=== PATIENT | female | born 1990 | race Caucasian/White ===

== ENCOUNTER 2019-09-08 06:09 | Inpatient (IN) | payer BC ==
--- NOTE | 2019-09-07 20:25 | P.HPOB ---
History of Present Illness H&P Date: 09/07/19 Chief Complaint: Post-dates This is a 29 y.o. female, 1, para 0, with an estimated date of confinement of 08/29/2019, estimated gestational age of 41-3/7 weeks, who presents for induction of labor due to postdates . course has been uncomplicated. She has had some swelling in her feet. OB Hx: . Business Operations Director Hx: No hx of STDs Social Hx: . Works part-time at [email or web address] labs: Hepatitis B surface antigen-neg RPR-NR Daquzrzk-fkh-impncy Blood type-O+ Antibody screen-jazmyn Hemoglobin-11.1 Random glucose-81 1 hr. GTT-89 GBS-positive Review of Systems Constitutional: Denies chills, Denies fever Eyes: denies blurred vision, denies pain Ears, nose, mouth and throat: Denies headache, Denies sore throat Cardiovascular: Denies chest pain, Denies shortness of breath Respiratory: Denies cough Gastrointestinal: Reports abdominal pain (irreg. ctxs) Genitourinary: Reports pelvic pain, Reports Musculoskeletal: Reports low back pain Integumentary: Denies pruritus, Denies rash Neurological: Denies numbness, Denies weakness Psychiatric: Denies anxiety, Denies depression Past Medical History Past Medical History: No Reported History Past Surgical History: Adenoidectomy Additional Past Surgical History / Comment(s): [place] teeth Past Anesthesia/Blood Transfusion Reactions: No Reported Reaction Past Psychological History: No Psychological Hx Reported Smoking Status: Former smoker Past Alcohol Use History: None Reported Past Drug Use History: None Reported - Past Family History Mother Family Medical History: Hypertension Medications and Allergies Home Medications Medication Instructions Recorded Confirmed Type Pnv,Calcium 72/Iron/Folic Acid 1 each PO 09/07/19 History [ Plus Tablet] Allergies Allergy/AdvReac Type Severity Reaction Status Date / Time No Known Allergies Allergy Verified 09/07/19 20:22 Exam Osteopathic Statement: *. No significant issues noted on an osteopathic structural exam other than those noted in the History and Physical/Consult. HEENT: within normal limits Heart: regular rate and rhythm Lungs: clear to auscultation bilaterally Abdomen: Cervix: 1.5 cm/60%/-3 heart tones: 140's Extremities: neg. Rey's Assessment and Plan (1) 41 weeks gestation of Status: Acute Code(s): Z3A.41 - 41 WEEKS GESTATION OF SNOMED Code(s): 43864916 Plan: Proceed with oxytocin induction of labor. Expectant management. Antibiotic prophylaxis for group B streptococcus. Epidural anesthesia if desired.
[2019-09-08] MEDS ORDERED: OXYTOCIN 10 UNIT/ML 1 ML VIAL IM PRN (06:21)
[2019-09-08] MEDS ORDERED: LIDOCAINE 0.5% (PF) 5 MG/ML (50 ML SDV) SQ PRN (06:21)
[2019-09-08] MEDS ORDERED: TERBUTALINE 1 MG/ML VIAL SQ PRN (06:21)
[2019-09-08] MEDS ORDERED: CARBOPROST TROMETHAMINE 250 MCG/ML 1 ML AMP IM PRN (06:21)
[2019-09-08] MEDS ORDERED: OXYTOCIN 30 UNITS/500 ML NS 30 UNIT in SALINE 1 500ML.BAG IV SCH (06:21)
[2019-09-08] MEDS ORDERED: METHYLERGONOVINE 0.2 MG/ML 1 ML AMP IM PRN (06:21)
[2019-09-08] MEDS ORDERED: AMPICILLIN 2,000 MG in SODIUM CHLORIDE 0.9% 100 ML IVPB STA (06:21)
[2019-09-08 06:46] LABS: Basophils % (A) 0 %; Eosinophils % (A) 1 %; HCT 29.9 % (34.0-46.0); HGB 9.7 gm/dL (11.4-16.0); Hypochromasia Slight; Lymphocytes # (A) 0.1 k/uL (1.0-4.8); Lymphocytes % (A) 2 %; MCH 28.9 pg (25.0-35.0); MCHC 32.5 g/dL (31.0-37.0); MCV 88.9 fL (80.0-100.0); Mean Platelet Volume 11.6; Monocytes # (A) 0.4 k/uL (0-1.0); Monocytes % (A) 5 %; Neutrophils # (A) 6.6 k/uL (1.3-7.7); Neutrophils % (A) 89 %; Platelet Count 144 k/uL (150-450); RBC 3.36 m/uL (3.80-5.40); RDW 15.9 % (11.5-15.5); WBC 7.4 k/uL (3.8-10.6)
[2019-09-08 07:13] LABS: Poikilocytosis (M) Present
[2019-09-08] MEDS: LACTATED RINGERS 1,000 ML IV SCH ×3 (07:15→15:58)
[2019-09-08] MEDS: AMPICILLIN 1,000 MG in SODIUM CHLORIDE 0.9% 50 ML IVPB SCH ×3 (11:54→19:28)
[2019-09-08] MEDS ORDERED: BUTORPHANOL 1 MG/ML 1 ML VIAL IV PRN (12:27)
[2019-09-08] MEDS ORDERED: CITRIC ACID-SODIUM CITRATE 15 ML CUP PO ONE (20:48)
[2019-09-08] MEDS ORDERED: CHLOROPROCAINE 3% 30 MG/ML 20 ML VIAL ONE (21:05)
[2019-09-08] MEDS ORDERED: ePHEDrine SULFATE/0.9% NACL/PF 50 MG/5 ML SYRINGE IV ONE (21:05)
[2019-09-08] MEDS ORDERED: KETOROLAC 30 MG/ML 1 ML VIAL ONE (21:05)
[2019-09-08] MEDS ORDERED: OXYTOCIN 10 UNIT/ML 1 ML VIAL ONE (21:05)
[2019-09-08] MEDS ORDERED: ONDANSETRON 4 MG/2 ML VIAL ONE (21:05)
--- NOTE | 2019-09-08 21:56 | P.OP ---
Date of Procedure: 09/08/19 Preoperative Diagnosis: 1. Intrauterine at 41-3/7 weeks. 2. Failure to progress. Postoperative Diagnosis: Same Procedure(s) Performed: Primary low transverse section Anesthesia: epidural Surgeon: Frances Rios Ball Truing Machine Operator #1: Eva Gallegos Estimated Blood Loss (ml): 500 Pathology: none sent Condition: stable Disposition: floor Indications for Procedure: This is a 29-year-old female 1 para 0 at 41-3/7 weeks who presents for induction of labor secondary to postdates. She underwent oxytocin induction of labor and artificial rupture of membranes with clear fluid noted. She reached a maximum of [address] that way for over 3 hours with no change despite adequate contractions. In addition she was noted to have some cervical swelling and some caput noted. I have discussed the risks, benefits, and alternative therapies for the above- mentioned procedure and for both sedation/anesthesia as well as necessary blood products administration, if indicated, as they pertain to this patient. The patient has indicated her understanding and acceptance of the risks and procedures discussed. Operative Findings: A viable male is noted in the right occiput transverse lie with a nuchal cord 2. scores are 9 at 1 minute and 9 at 5 minutes and weight is 8 lbs. 12 oz. Normal uterus tubes and ovaries are noted. Description of Procedure: The patient is taken to the operating room where she is placed in the dorsal supine position with leftward tilt after epidural anesthesia is bolused. She is prepped and draped in the normal sterile fashion. Skin was tested and found to be adequately anesthetized. A Pfannenstiel skin incision was made with a scalpel. A second knife was used to carry the incision down to the underlying layer of fascia. The fascia was nicked in the midline with a scalpel and then extended laterally bilaterally with March scissors. The anterior lip of the fascia was grasped with 2 Yobany clamps and then dissected off the underlying rectus muscle in the midline with March scissors. The inferior aspect of the fascial incision was grasped with 2 Yobany clamps and dissected off the underlying rectus muscle and the midline with March scissors. Next the peritoneum layer was tented up with 2 hemostats and then entered sharply with the scalpel. The incision is extended superiorly and inferiorly with Metzenbaum scissors. Next a DeLee retractor is placed. The vesicouterine peritoneum is entered sharply with Metzenbaum scissors and extended laterally bilaterally with Metzenbaum scissors and then the bladder flap is pushed inferiorly. The lower uterine segment is incised in transverse fashion with the scalpel and then bluntly entered with a hemostat. Clear fluid is noted. The incision was then extended laterally bilaterally with 2 fingers. Next the 's head is delivered through the incision. It is noted to be in the right occiput transverse lie. Nose and mouth are bulb suctioned. Nuchal cord 2 was reduced around the 's head. The remainder of the is easily delivered and placed on mother's abdomen. Cord is clamped and cut. is taken to warmer by nursing staff. Uterine fundus is gently massaged and placenta is delivered manually. Uterus is exteriorized and cleared of all clots and debris. Uterine incision is closed with 0 Vicryl suture in a running locked fashion. A second layer of 0 Vicryl suture is used in a running fashion for hemostasis. Once adequate hemostasis as assured, the vesicouterine peritoneum is reapproximated with 2-0 Vicryl suture in a running fashion. Posterior cul-de-sac is suctioned of all clots and debris. Uterus is returned to the abdomen. Incision is noted to be hemostatic. Peritoneal layer is closed with 0 Vicryl suture in a running fashion. Muscle layer is reapproximated with 0 Vicryl suture in interrupted fashion. Fascia layer is then closed with 0 PDS suture with 2 sutures meeting in the midline and the knots buried in either side and in the midline. The subcutaneous tissue was then closed with 2-0 Vicryl suture. Skin layer was then closed with juan david. All sponge and needle counts are correct. The patient is taken to recovery room in stable condition.
[2019-09-08] MEDS ORDERED: diphenhydrAMINE 25 MG CAP PO PRN (22:01)
[2019-09-08] MEDS ORDERED: BENZOCAINE/MENTHOL SPRAY 1 GM/SPRAY AEROSOL TOPICAL PRN (22:01)
[2019-09-08] MEDS ORDERED: METOCLOPRAMIDE 5 MG/ML 2 ML VIAL IVP PRN (22:01)
[2019-09-08] MEDS ORDERED: MEASLES-MUMPS-RUBELLA VACC/PF 12,500 UNIT/0.5 ML VIAL SQ ONE (22:01)
[2019-09-08] MEDS ORDERED: ACETAMINOPHEN TAB 325 MG TAB PO PRN (22:01)
[2019-09-08] MEDS ORDERED: SIMETHICONE 80 MG CHEWABLE PO PRN (22:01)
[2019-09-08] MEDS ORDERED: NALOXONE 0.4 MG/ML 1 ML VIAL IV PRN (22:01)
[2019-09-08] MEDS ORDERED: OXYTOCIN 20 UNITS/1000 ML NS 1,000 ML IV SCH (22:01)
[2019-09-08] MEDS ORDERED: LANOLIN CREAM 5 GM TUBE TOPICAL PRN (22:01)
[2019-09-08] MEDS ORDERED: ZOLPIDEM 5 MG TAB PO PRN (22:01)
[2019-09-08] MEDS ORDERED: diphenhydrAMINE 50 MG CAP PO PRN (22:01)
[2019-09-08] MEDS ORDERED: diphenhydrAMINE 50 MG/ML 1 ML VIAL IVP PRN ×2 (22:01)
[2019-09-08] MEDS ORDERED: KETOROLAC 30 MG/ML 1 ML VIAL IVP PRN (22:01)
[2019-09-08] MEDS ORDERED: HYDROcodone/APAP 5-325MG 1 EACH TAB PO PRN (22:01)
[2019-09-08] MEDS ORDERED: ONDANSETRON 4 MG/2 ML VIAL IVP PRN (22:01)
[2019-09-09] MEDS: SENNOSIDES-DOCUSATE SODIUM 1 EACH TAB PO SCH ×3 (02:42→20:57)
[2019-09-09] MEDS: LACTATED RINGERS 1,000 ML IV SCH ×3 (02:42→09:18)
[2019-09-09 06:34] LABS: Anisocytosis Slight; Basophils % (A) 0 %; Eosinophils % (A) 0 %; HCT 25.9 % (34.0-46.0); HGB 8.3 gm/dL (11.4-16.0); Hypochromasia Slight; Lymphocytes # (A) 0.7 k/uL (1.0-4.8); Lymphocytes % (A) 8 %; MCH 28.4 pg (25.0-35.0); MCHC 31.9 g/dL (31.0-37.0); Mean Platelet Volume 11.7; Monocytes # (A) 0.4 k/uL (0-1.0); Monocytes % (A) 4 %; Neutrophils # (A) 8.4 k/uL (1.3-7.7); Neutrophils % (A) 86 %; Platelet Count 112 k/uL (150-450); RBC 2.91 m/uL (3.80-5.40); WBC 9.7 k/uL (3.8-10.6)
--- NOTE | 2019-09-09 08:45 | P.PNOBGPC ---
Subjective - Subjective Principal diagnosis: Status post primary section postoperative day #1 Interval history: Patient is doing well. She is tolerating her pain okay. She has not passed flatus or bowel movement yet. Her catheter was just removed this morning. Lochia is minimal. She is bottle feeding. Patient reports: Reports appetite normal, Reports pain well controlled, Reports ambulating normally [place]: doing well, bottle feeding Objective - Vital Signs Latest vital signs: Vital Signs Temp Pulse Resp BP Pulse Ox 09/09/19 07:41 98.4 F 79 16 119/69 09/09/19 04:00 96.6 F L 78 16 112/68 100 09/08/19 23:54 97.2 F L 80 16 125/70 100 09/08/19 23:39 56 L 16 125/72 100 09/08/19 23:09 57 L 16 131/72 100 09/08/19 22:54 62 16 129/68 100 09/08/19 22:39 82 16 144/65 100 09/08/19 22:24 86 16 168/68 97 09/08/19 22:09 98 F 68 16 127/85 91 L Intake and Output 09/08/19 09/09/19 09/09/19 22:59 06:59 14:59 Output Total 800 850 Balance -800 -850 Output: Urine 800 850 Uretheral (Alex) 400 Other: Voiding Method Indwelling Catheter Indwelling Catheter - Exam Extremities: Present: normal. Absent: tenderness, edema Abdomen: Present: normal appearance, soft. Absent: distention, tenderness Incision: Present: normal, dry. Absent: erythematous, intact Uterus: Present: normal, firm. Absent: tenderness - Labs Labs: Abnormal Lab Results - Last 24 Hours (Table) 09/09/19 Range/Units 06:20 RBC 2.91 L (3.80-5.40) m/uL Hgb 8.3 L (11.4-16.0) gm/dL Hct 25.9 L (34.0-46.0) % RDW 16.0 H (11.5-15.5) % Plt Count 112 L (150-450) k/uL Neutrophils # 8.4 H (1.3-7.7) k/uL Lymphocytes # 0.7 L (1.0-4.8) k/uL Assessment and Plan Assessment: Status post primary section postoperative day #1 (1) 41 weeks gestation of Current Visit: No Status: Acute Code(s): Z3A.41 - 41 WEEKS GESTATION OF SNOMED Code(s): 52112955 Plan: Continue with postoperative care today. Will switch to oral pain medications later today. Will advance diet as tolerated after flatus. Patient will be seen by Dr. Guadarrama this weekend in my absence. She will follow up with me next week for a postoperative check in the office.
[2019-09-09] MEDS: HYDROcodone/APAP 7.5-325MG 1 EACH TAB PO PRN ×2 (14:20→20:56)
[2019-09-09] MEDS: IBUPROFEN 600 MG TAB PO PRN ×2 (16:32→23:32)
[2019-09-09 22:29] VITALS: RESP 16
[2019-09-10 03:13] VITALS: TEMP 98.4
[2019-09-10] MEDS: HYDROcodone/APAP 7.5-325MG 1 EACH TAB PO PRN ×2 (04:04→10:20)
[2019-09-10] MEDS: IBUPROFEN 600 MG TAB PO PRN ×2 (06:15→13:14)
[2019-09-10] MEDS: SENNOSIDES-DOCUSATE SODIUM 1 EACH TAB PO SCH (07:48)
[2019-09-10 07:56] VITALS: BP 120/73; PULSE 75
--- NOTE | 2019-09-10 11:52 | P.DS ---
Providers Date of admission: 09/08/19 06:09 Expected date of discharge: 09/10/19 Attending physician: Frances Rios Primary care physician: Stated None Hospital Course: Patient is doing very well postop day 2. She is involuting, voiding and tolerating her diet. She is passing flatus and voices no complaints other than incisional tenderness. We'll plan discharged to home today. Prescriptions for Motrin and [place] were provided. All questions were answered for her prior to her discharge and discharge instruction were thoroughly reviewed. On physical exam vital signs are stable and afebrile. Heart regular, lungs clear, extremities without pain. Abdomen is soft positive bowel sounds are noted in her incision is otherwise clean dry and intact. Lochia is reported light. Assessment postop day 2. Plan discharged home follow up with Dr. Ha on Thursday or Thursday for staple removal. Patient Condition at Discharge: Good Plan - Discharge Summary New Discharge Prescriptions: New Ibuprofen [Motrin] 600 mg PO Q6HR PRN #60 tab PRN Reason: Mild Pain Or Fever >= 100.5 HYDROcodone/APAP 5-325MG [[place] 5-325] 1 each PO Q4HR PRN #30 tab PRN Reason: Moderate Pain Continue Pnv,Calcium 72/Iron/Folic Acid [ Plus Tablet] 1 each PO DAILY Discharge Medication List Pnv,Calcium 72/Iron/Folic Acid [ Plus Tablet] 1 each PO DAILY 09/07/19 [History] HYDROcodone/APAP 5-325MG [[place] 5-325] 1 each PO Q4HR PRN #30 tab 09/09/19 [Rx] Ibuprofen [Motrin] 600 mg PO Q6HR PRN #60 tab 09/09/19 [Rx] Follow up Appointment(s)/Referral(s): Frances Rios DO [Doctor of Osteopathic Medicine] - 1 Week Activity/Diet/Wound Care/Special Instructions: Instructions 1. Do not begin any exercise program for 3 weeks. 2. Do not resume sexual relations for 3 weeks or longer if uncomfortable. 3. You may take tub baths or showers at any time. 4. You may use tampons if desired after 3 weeks. 5. Keep the area of episiotomy (stitches) clean and dry. 6. If you are not nursing, wear a good fitting, supportive bra during the day and limit fluid intake for at least 1 week to prevent breast engorgement. 7. Call the office, [phone], within the next week to make appointment for your 6 week checkup if it has not already been made. 8. Report any of the following occurrences to the doctor promptly: a. Heavy, excessive bleeding b. Chills, fever c. Burning or frequency of urination d. Pain or redness and breasts if nursing e. Increasing pain or swelling in episiotomy (stitches). In addition to the above instructions, the following additional should be followed: 1. No heavy lifting or straining (exercising) until after 6 week checkup. 2. Keep abdominal incision clean and dry: You may wear a dressing if more comfortable. 3. Make office appointment for 10 days after going home or as instructed by her doctor. Discharge Disposition: HOME SELF-CARE
== END 2019-09-10 13:30 | disposition home or self-care (01) | DRG 788 ==
LOC: 4FBP 06:09
PROVIDERS: ADMIT Obstetrics & Gynecology; ATTEND Obstetrics & Gynecology
PROC: 10D00Z1 Extraction of Products of Conception, Low, Open Approach (ICD-10-PCS; principal; 2019-09-08 21:05)
DX: O48.0 Post-term pregnancy (principal); O32.2XX0 Maternal care for transverse and oblique lie, not applicable or unspecified; O69.81X0 Labor and delivery complicated by cord around neck, without compression, not applicable or unspecified; Z37.0 Single live birth; Z3A.41 41 weeks gestation of pregnancy; Z90.89 Acquired absence of other organs; Z87.891 Personal history of nicotine dependence; Z82.49 Family history of ischemic heart disease and other diseases of the circulatory system
CPT/HCPCS: 85025; 86850; 86900; 86901; 90707

== ENCOUNTER 2021-09-02 04:47 | Emergency (ER) | payer BC, OTHER ==
[2021-09-02 04:53] VITALS: BP 141/94; PULSE 103; RESP 16; TEMP 98.8
[2021-09-02] MEDS ORDERED: LORazepam 1 MG TAB PO STA (05:45)
--- NOTE | 2021-09-02 05:55 | ED ---
Arrhythmia/Palpitations HPI - General Chief Complaint: Arrhythmia/Palpitations Stated Complaint: irregular heart beat Time Seen by Provider: 09/02/21 05:54 Source: patient, RN notes reviewed, old records reviewed Mode of arrival: ambulatory Limitations: no limitations - History of Present Illness Initial Comments: This is a 31-year-old female to the emergency department for evaluation. Patient Dese for evaluation regards to palpitations elevated heart rate some tachycardia. Mild nausea no vomiting. Symptoms woke her significantly. No history of same. No medical history takes no medications denies drugs or alcohol does admit to some mild anxiety MD Complaint: "heart racing", palpitations, irregular heart beat -: hour(s) Arrhythmia History: atrial fibrillation Associated Symptoms: anxiety Treatments Prior to Arrival: other (0) - Related Data Home Medications Medication Instructions Recorded Confirmed Vit No.180/Iron/Folic 1 each PO DAILY 09/07/19 09/08/19 [ Plus Vitamin-Mineral] Previous Rx's Medication Instructions Recorded HYDROcodone/APAP 5-325MG [[place] 1 each PO Q4HR PRN #30 tab 09/09/19 5-325] Ibuprofen [Motrin] 600 mg PO Q6HR PRN #60 tab 09/09/19 Allergies Allergy/AdvReac Type Severity Reaction Status Date / Time No Known Allergies Allergy Verified 09/02/21 04:50 Review of Systems ROS Statement: Those systems with pertinent positive or pertinent negative responses have been documented in the HPI. ROS Other: All systems not noted in ROS Statement are negative. Past Medical History Past Medical History: No Reported History History of Any Multi-Drug Resistant Organisms: None Reported Past Surgical History: Adenoidectomy Additional Past Surgical History / Comment(s): [place] teeth Past Anesthesia/Blood Transfusion Reactions: No Reported Reaction Past Psychological History: No Psychological Hx Reported Smoking Status: Former smoker Past Alcohol Use History: None Reported Past Drug Use History: None Reported - Past Family History Mother Family Medical History: Hypertension General Exam Limitations: no limitations General appearance: alert, in no apparent distress, anxious Head exam: Present: atraumatic, normocephalic, normal inspection Eye exam: Present: normal appearance, PERRL, EOMI. Absent: scleral icterus, conjunctival injection, periorbital swelling ENT exam: Present: normal exam, mucous membranes moist Neck exam: Present: normal inspection. Absent: tenderness, meningismus, lymphadenopathy Respiratory exam: Present: normal lung sounds bilaterally. Absent: respiratory distress, wheezes, rales, rhonchi, stridor Cardiovascular Exam: Present: normal rhythm, tachycardia, normal heart sounds. Absent: systolic murmur, diastolic murmur, rubs, gallop, clicks GI/Abdominal exam: Present: soft, normal bowel sounds. Absent: distended, tenderness, guarding, rebound, rigid Extremities exam: Present: normal inspection, full ROM, normal capillary refill. Absent: tenderness, pedal edema, joint swelling, calf tenderness Back exam: Present: normal inspection Neurological exam: Present: alert, oriented X3, CN II-XII intact Psychiatric exam: Present: normal affect, normal mood Skin exam: Present: warm, dry, intact, normal color. Absent: rash Course Vital Signs 09/02/21 04:51 Temperature 98.8 F Pulse Rate 103 H Respiratory 16 Rate Blood Pressure 141/94 O2 Sat by Pulse 98 Oximetry - Reevaluation(s) Reevaluation #1: 09/02/21 Medical record is reviewed Reevaluation #2: 09/02/21 symptoms are improved Reevaluation #3: 09/02/21 Patient informed of results and questions answered EKG Findings - EKG Comments: EKG Findings:: EKG shows rate of 90 MS 152 QRS 88 QTc 403 Medical Decision Making - Medical Decision Making 31 female to the emergency department for evaluation. Patient is a palpitations, EKG normal here in the emergency department for signs are normal and stable patient can be discharged home symptoms resolved - Radiology Data Radiology results: report reviewed (Chest x-rays negative for acute disease), image reviewed Disposition Clinical Impression: Tachycardia, Palpitations, Anxiety Disposition: HOME SELF-CARE Condition: Good Instructions (If sedation given, give patient instructions): Heart Palpitations (ED) Is patient prescribed a controlled substance at d/c from ED?: No Referrals: Rosmery Altamirano MD [Primary Care Provider] - 1-2 days Time of Disposition: 06:00
--- NOTE | 2021-09-02 05:59 | XR ---
EXAMINATION TYPE: XR chest 2V DATE OF EXAM: 09/02/2021 COMPARISON: NONE HISTORY: Palpitation TECHNIQUE: 2 views FINDINGS: Heart and mediastinum are normal. Lungs are clear. Diaphragm is normal. Bony thorax appears normal. IMPRESSION: Normal chest.
== END 2021-09-02 06:13 | disposition home or self-care (01) ==
LOC: EC 04:47
DX: R00.0 Tachycardia, unspecified (principal); R00.2 Palpitations; F41.9 Anxiety disorder, unspecified; Z86.79 Personal history of other diseases of the circulatory system; Z87.891 Personal history of nicotine dependence
CPT/HCPCS: 71046; 93005; 99284